=== PATIENT | female | born 1990 | race American Indian/Alaskan Native ===

== ENCOUNTER 2020-02-23 21:14 | Emergency (ER) | payer OTHER ==
[2020-02-23 21:18] VITALS: BP 143/97
[2020-02-23] MEDS ORDERED: ONDANSETRON 4 MG ODT TAB PO ONE (21:47)
[2020-02-23] MEDS ORDERED: BUTALB/ACETAMINOPHEN/CAFFEINE TAB PO ONE (21:47)
[2020-02-23] MEDS ORDERED: AMOXICILLIN/K CLAV 875/125MG TAB PO ONE (21:47)
[2020-02-23] MEDS ORDERED: KETOROLAC 30 MG/1 ML INJ IM ONE (21:47)
--- NOTE | 2020-02-23 22:02 | Emergency Department Report ---
ED General Adult HPI - General Chief complaint: Headache Stated complaint: HEADACHE Source: patient Mode of arrival: Ambulatory Limitations: No Limitations - History of Present Illness Initial comments: Patient is a 29-year-old -[place] female with no past medical history who presents to the ED with complaint of acute onset persistent severe frontal sinus headache and pressure for the last 3 weeks despite taking kozo-byv-nwilcuj medications for pain. Patient states that in the last 6 hours headache is worsened and has not responded to any medicine. Patient denies fever, chills, nausea, vomiting, dizziness, syncope, change in vision, neck pain, nasal and sinus congestion, abdominal pain, cough, sore throat, chest pain or shortness of breath or loss of consciousness. MD Complaint: frontal headache -: Sudden, week(s) (3) Location: head Radiation: non-radiation Severity scale (0 -10): 7 Quality: aching, sharp Consistency: constant Improves with: none Worsens with: none Associated Symptoms: denies other symptoms, headaches, loss of appetite. denies: confusion, chest pain, cough, diaphoresis, fever/chills, malaise, nausea/vomiting, rash, seizure, shortness of breath, syncope, weakness, other Treatments Prior to Arrival: none - Related Data Previous Rx's Medication Instructions Recorded Last Taken Type Amoxicillin/Potassium Clav 1 each PO Q12H #20 tablet 02/23/20 Unknown Rx [Augmentin 875-125 Tablet] Butalb/Acetamin/Caff 50-325-40 1 - 2 tab PO Q6HR PRN #15 tab 02/23/20 Unknown Rx [Fioricet 50-325-40] Ketorolac [Toradol] 10 mg PO Q8H PRN #20 tablet 02/23/20 Unknown Rx Ondansetron [Zofran Odt] 4 mg PO Q6HR PRN #15 tab.rapdis 02/23/20 Unknown Rx ED Review of Systems ROS: Stated complaint: HEADACHE Other details as noted in HPI Constitutional: denies: chills, fever Eyes: denies: eye pain, eye discharge, vision change ENT: denies: ear pain, throat pain Respiratory: denies: cough, shortness of breath, wheezing Cardiovascular: denies: chest pain, palpitations Endocrine: no symptoms reported Gastrointestinal: denies: abdominal pain, nausea, vomiting, diarrhea Genitourinary: denies: urgency, dysuria, discharge Musculoskeletal: denies: back pain, joint swelling, arthralgia Skin: denies: rash, lesions Neurological: headache. denies: weakness, paresthesias Psychiatric: denies: anxiety, depression Hematological/Lymphatic: denies: easy bleeding, easy bruising ED Past Medical Hx - Past Medical History Previous Medical History?: No - Surgical History Past Surgical History?: No - Social History Smoking Status: Never Smoker Substance Use Type: None - Medications Home Medications: Home Medications Medication Instructions Recorded Confirmed Last Taken Type Amoxicillin/Potassium Clav 1 each PO Q12H #20 tablet 02/23/20 Unknown Rx [Augmentin 875-125 Tablet] Butalb/Acetamin/Caff 50-325-40 1 - 2 tab PO Q6HR PRN #15 tab 02/23/20 Unknown Rx [Fioricet 50-325-40] Ketorolac [Toradol] 10 mg PO Q8H PRN #20 tablet 02/23/20 Unknown Rx Ondansetron [Zofran Odt] 4 mg PO Q6HR PRN #15 tab.rapdis 02/23/20 Unknown Rx ED Physical Exam - General Limitations: No Limitations General appearance: alert, in no apparent distress - Head Head exam: Present: atraumatic, normocephalic, normal inspection - Eye Eye exam: Present: normal appearance, PERRL, EOMI Pupils: Present: normal accommodation - ENT ENT exam: Present: normal exam, normal orophraynx, mucous membranes moist, TM's normal bilaterally, normal external ear exam - Neck Neck exam: Present: normal inspection, full ROM - Respiratory Respiratory exam: Present: normal lung sounds bilaterally. Absent: respiratory distress, wheezes, rales, stridor, chest wall tenderness, accessory muscle use, prolonged expiratory - Cardiovascular Cardiovascular Exam: Present: regular rate, normal rhythm, normal heart sounds. Absent: systolic murmur, diastolic murmur, rubs, gallop - GI/Abdominal GI/Abdominal exam: Present: soft, normal bowel sounds. Absent: distended, tenderness, guarding, hyperactive bowel sounds, hypoactive bowel sounds, organomegaly - Extremities Exam Extremities exam: Present: normal inspection, full ROM, normal capillary refill - Back Exam Back exam: Present: normal inspection, full ROM. Absent: tenderness, CVA tenderness (R), muscle spasm, paraspinal tenderness, vertebral tenderness - Neurological Exam Neurological exam: Present: alert, oriented X3, CN II-XII intact, normal gait, reflexes normal - Psychiatric Psychiatric exam: Present: normal affect, normal mood - Skin Skin exam: Present: warm, dry, intact, normal color. Absent: rash ED Course Vital Signs 02/23/20 21:16 Temperature 98.8 F Pulse Rate 95 H Respiratory 18 Rate Blood Pressure 143/97 O2 Sat by Pulse 100 Oximetry ED Medical Decision Making - Medical Decision Making This is a 29-year-old female with no past medical history who presented to the ED with acute onset persistent frontal sinus pressure and headache for the last 3 weeks despite taking ndex-hya-qeqeimb pain medications. In the ED, patient is alert and oriented x3 and is not in any distress. Patient was treated for pain in the ED and on reevaluation, patient's pain is well controlled with medications. Based on the history and physical exam findings, patient has not had any neurological symptoms. Therefore patient symptoms likely due to acute frontal sinusitis. Patient will discharge home on antibiotics and pain medication and was advised to follow-up with her primary care physician in 7 to 10 days for reevaluation or return to the ED immediately if symptoms get worse. - Differential Diagnosis sinus headache; sinusitis; tension headache; cluster headache Critical care attestation.: If time is entered above; I have spent that time in minutes in the direct care of this critically ill patient, excluding procedure time. ED Disposition Clinical Impression: Sinus headache, Acute non-recurrent frontal sinusitis Disposition: -01 TO HOME OR SELFCARE Is pt being admited?: No Does the pt Need Aspirin: No Condition: Stable Instructions: Acute Bacterial Rhinosinusitis (ED), Acute Headache (ED) Additional Instructions: Take medication with food, drink plenty of fluids and follow-up with your primary care physician in 7 to 10 days for reevaluation. Return to the ED immediately if symptoms get worse. Prescriptions: Amoxicillin/Potassium Clav [Augmentin 875-125 Tablet] 1 each PO Q12H #20 tablet Butalb/Acetamin/Caff 50-325-40 [Fioricet 50-325-40] 1 - 2 tab PO Q6HR PRN #15 tab PRN Reason: Headache Ketorolac [Toradol] 10 mg PO Q8H PRN #20 tablet PRN Reason: Pain Ondansetron [Zofran Odt] 4 mg PO Q6HR PRN #15 tab.rapdis PRN Reason: Nausea Referrals: DARRYL EID MD [Primary Care Provider] - 3-5 Days Time of Disposition: 21:59 Print Language: POLISH
== END 2020-02-23 22:25 | disposition home or self-care (01) ==
LOC: ED 21:14
DX: J01.10 Acute frontal sinusitis, unspecified (principal); Z79.2 Long term (current) use of antibiotics; Z79.899 Other long term (current) drug therapy
CPT/HCPCS: 96372; 99283; J1885; Q0162

== ENCOUNTER 2020-06-24 11:28 | Emergency (ER) | payer OTHER ==
[2020-06-24 11:36] VITALS: BP 145/94
--- NOTE | 2020-06-24 12:46 | Event Note ---
ED Screening Note ED Screening Note: This initial assessment/diagnostic orders/clinical plan/treatment(s) is/are subject to change based on patients health status, clinical progression and re- assessment by fellow clinical providers in the ED. Further treatment and workup at subsequent clinical providers discretion. Patient/guardian urged not to elope from the ED as their condition may be serious if not clinically assessed and managed. Initial orders include: pt in nad
[2020-06-24 12:57] LABS: Basophils # (Auto) 0.1 K/mm3 (0.0-0.1); Eosinophils # (Auto) 0.1 K/mm3 (0.0-0.4); Eosinophils % (Auto) 1.5 % (0.0-4.3); Hematocrit 30.1 % (30.3-42.9); Hemoglobin 9.1 gm/dl (10.1-14.3); Lymphocytes # (Auto) 1.9 K/mm3 (1.2-5.4); Lymphocytes % (Auto) 24.8 % (13.4-35.0); Mean Corpuscular HGB Conc 30 % (30-34); Monocytes # (Auto) 0.6 K/mm3 (0.0-0.8); Monocytes % (Auto) 7.6 % (0.0-7.3); Platelet Count 315 K/mm3 (140-440); Red Blood Count 4.69 M/mm3 (3.65-5.03); Red Cell Distribution Width 19.6 % (13.2-15.2)
[2020-06-24 13:25] LABS: Mean Corpuscular Volume 64 fl (79-97)
[2020-06-24 13:39] LABS: Alanine Aminotransferase 15 units/L (7-56); Albumin 4.1 g/dL (3.9-5); BUN/Creatinine Ratio 6; Blood Urea Nitrogen 5 mg/dL (7-17); Calcium 9.6 mg/dL (8.4-10.2); Hemolysis Index 2
[2020-06-24 15:26] LABS: Bilirubin,Urine NEG (Negative); Blood,Urine NEG (Negative); Color,Urine Yellow (Yellow); Mucus,Urine 3+ /HPF; Protein,Urine <15 mg/dL mg/dL (Negative)
--- NOTE | 2020-06-24 15:59 | Emergency Department Report ---
ED Abdominal Pain HPI - General Chief Complaint: Abdominal Pain Stated Complaint: ABD PAIN PUI?: No Time Seen by Provider: 06/24/20 12:24 Source: patient Mode of arrival: Ambulatory Limitations: No Limitations - History of Present Illness Initial Comments: This is a 30-year-old female presents the ED complaining of left-sided flank pain for the past couple of days. Patient states that pain is localized to the left flank area. Patient denies urinary frequency, dysuria, nausea vomiting or diarrhea. She denies fever/chills/chest pain shortness of breath or any other symptoms. MD Complaint: abdominal pain, flank pain - Related Data Previous Rx's Medication Instructions Recorded Last Taken Type Amoxicillin/Potassium Clav 1 each PO Q12H #20 tablet 02/23/20 Unknown Rx [Augmentin 875-125 Tablet] Ketorolac [Toradol] 10 mg PO Q8H PRN #20 tablet 02/23/20 Unknown Rx Ondansetron [Zofran Odt] 4 mg PO Q6HR PRN #15 tab.rapdis 02/23/20 Unknown Rx Butalb/Acetamin/Caff 50-325-40 1 tab PO Q6HR PRN #15 tab 02/24/20 Unknown Rx [Fioricet 50-325-40] Ibuprofen [Motrin] 800 mg PO Q8HR #30 tablet 06/24/20 Unknown Rx Allergies Allergy/AdvReac Type Severity Reaction Status Date / Time No Known Allergies Allergy Unverified 02/23/20 22:05 ED Review of Systems ROS: Stated complaint: ABD PAIN Other details as noted in HPI Comment: All other systems reviewed and negative ED Past Medical Hx - Social History Smoking Status: Never Smoker Substance Use Type: None - Medications Home Medications: Home Medications Medication Instructions Recorded Confirmed Last Taken Type Amoxicillin/Potassium Clav 1 each PO Q12H #20 tablet 02/23/20 Unknown Rx [Augmentin 875-125 Tablet] Ketorolac [Toradol] 10 mg PO Q8H PRN #20 tablet 02/23/20 Unknown Rx Ondansetron [Zofran Odt] 4 mg PO Q6HR PRN #15 tab.rapdis 02/23/20 Unknown Rx Butalb/Acetamin/Caff 50-325-40 1 tab PO Q6HR PRN #15 tab 02/24/20 Unknown Rx [Fioricet 50-325-40] Ibuprofen [Motrin] 800 mg PO Q8HR #30 tablet 06/24/20 Unknown Rx ED Physical Exam - General Limitations: No Limitations General appearance: alert, in no apparent distress - Head Head exam: Present: atraumatic, normocephalic - Eye Eye exam: Present: normal appearance - ENT ENT exam: Present: mucous membranes moist - Neck Neck exam: Present: normal inspection - Respiratory Respiratory exam: Present: normal lung sounds bilaterally. Absent: respiratory distress - Cardiovascular Cardiovascular Exam: Present: regular rate, normal rhythm. Absent: systolic murmur, diastolic murmur, rubs, gallop - GI/Abdominal GI/Abdominal exam: Present: soft, normal bowel sounds. Absent: distended, tenderness, guarding, rebound, mass - Extremities Exam Extremities exam: Present: normal inspection - Back Exam Back exam: Present: normal inspection, full ROM. Absent: CVA tenderness (R), CVA tenderness (L) - Neurological Exam Neurological exam: Present: alert, oriented X3 - Psychiatric Psychiatric exam: Present: normal affect, normal mood - Skin Skin exam: Present: warm, dry, intact, normal color. Absent: rash ED Course Vital Signs 06/24/20 11:35 Temperature 98.2 F Pulse Rate 86 Respiratory 20 Rate Blood Pressure 145/94 O2 Sat by Pulse 98 Oximetry ED Medical Decision Making - Lab Data Result diagrams: 06/24/20 12:42 06/24/20 12:42 Laboratory Last Values WBC 7.5 K/mm3 (4.5-11.0) 06/24/20 12:42 RBC 4.69 M/mm3 (3.65-5.03) 06/24/20 12:42 Hgb 9.1 gm/dl (10.1-14.3) L 06/24/20 12:42 Hct 30.1 % (30.3-42.9) L 06/24/20 12:42 MCV 64 fl (79-97) L 06/24/20 12:42 MCH 19 pg (28-32) L 06/24/20 12:42 MCHC 30 % (30-34) 06/24/20 12:42 RDW 19.6 % (13.2-15.2) H 06/24/20 12:42 Plt Count 315 K/mm3 (140-440) 06/24/20 12:42 Lymph % (Auto) 24.8 % (13.4-35.0) 06/24/20 12:42 Brooke % (Auto) 7.6 % (0.0-7.3) H 06/24/20 12:42 Eos % (Auto) 1.5 % (0.0-4.3) 06/24/20 12:42 Baso % (Auto) 1.0 % (0.0-1.8) 06/24/20 12:42 Lymph # 1.9 K/mm3 (1.2-5.4) 06/24/20 12:42 Brooke # 0.6 K/mm3 (0.0-0.8) 06/24/20 12:42 Eos # 0.1 K/mm3 (0.0-0.4) 06/24/20 12:42 Baso # 0.1 K/mm3 (0.0-0.1) 06/24/20 12:42 Seg Neutrophils % 65.1 % (40.0-70.0) 06/24/20 12:42 Seg Neutrophils # 4.9 K/mm3 (1.8-7.7) 06/24/20 12:42 Sodium 141 mmol/L (137-145) 06/24/20 12:42 Potassium 4.3 mmol/L (3.6-5.0) 06/24/20 12:42 Chloride 103.7 mmol/L (98-107) 06/24/20 12:42 Carbon Dioxide 22 mmol/L (22-30) 06/24/20 12:42 Anion Gap 20 mmol/L 06/24/20 12:42 BUN 5 mg/dL (7-17) L 06/24/20 12:42 Creatinine 0.9 mg/dL (0.6-1.2) 06/24/20 12:42 Estimated GFR > 60 ml/min 06/24/20 12:42 BUN/Creatinine Ratio 6 % 06/24/20 12:42 Glucose 90 mg/dL (65-100) 06/24/20 12:42 Calcium 9.6 mg/dL (8.4-10.2) 06/24/20 12:42 Total Bilirubin 0.30 mg/dL (0.1-1.2) 06/24/20 12:42 AST 15 units/L (5-40) 06/24/20 12:42 ALT 15 units/L (7-56) 06/24/20 12:42 Alkaline Phosphatase 70 units/L (35-129) 06/24/20 12:42 Total Protein 7.4 g/dL (6.3-8.2) 06/24/20 12:42 Albumin 4.1 g/dL (3.9-5) 06/24/20 12:42 Albumin/Globulin Ratio 1.2 % 06/24/20 12:42 Lipase 13 units/L (13-60) 06/24/20 12:42 Urine Color Yellow (Yellow) 06/24/20 15:11 Urine Turbidity Clear (Clear) 06/24/20 15:11 Urine pH 5.0 (5.0-7.0) 06/24/20 15:[address] [employer] 1.018 (1.003-1.030) 06/24/20 15:11 Urine Protein <15 mg/dl mg/dL (Negative) 06/24/20 15:11 Urine Glucose (UA) Neg mg/dL (Negative) 06/24/20 15:11 Urine Ketones Neg mg/dL (Negative) 06/24/20 15:11 Urine Blood Neg (Negative) 06/24/20 15:11 Urine Nitrite Neg (Negative) 06/24/20 15:11 Urine Bilirubin Neg (Negative) 06/24/20 15:11 Urine Urobilinogen 2.0 mg/dL (<2.0) 06/24/20 15:11 Ur Leukocyte Esterase Neg (Negative) 06/24/20 15:11 Urine WBC (Auto) 3.0 /HPF (0.0-6.0) 06/24/20 15:11 Urine RBC (Auto) 3.0 /HPF (0.0-6.0) 06/24/20 15:11 U Epithel Cells (Auto) 3.0 /HPF (0-13.0) 06/24/20 15:11 Urine Mucus 3+ /HPF 06/24/20 15:11 - Medical Decision Making This 30-year-old female presented with flank pain All labs were within normal limits, urinalysis negative. I discussed findings with the patient. I discussed with patient that this could be muscular in nature due to negative findings. And no urinary symptoms I discussed patient follow-up with primary care physician in 3 days. Vital signs are normal patient is in no acute or respiratory distress patient understand instructions and will follow-up - Differential Diagnosis Acute Pyelo, UTI, muscular strain Critical care attestation.: If time is entered above; I have spent that time in minutes in the direct care of this critically ill patient, excluding procedure time. ED Disposition Clinical Impression: Flank pain Disposition: DC-01 TO HOME OR SELFCARE Is pt being admited?: No Does the pt Need Aspirin: No Condition: Stable Instructions: Abdominal Pain (ED), Flank Pain (ED) Additional Instructions: Make sure to follow up with the primary care physician as discussed. Take all your medications as you've been prescribed. If you have any worsening symptoms or develop new symptoms please return to ED immediately. Prescriptions: Ibuprofen [Motrin] 800 mg PO Q8HR #30 tablet Referrals: PRIMARY CARE, [Primary Care Provider] - 3-5 Days [facility] [Outside] - 3-5 Days [facility] [Outside] - 3-5 Days Forms: Work/School Release Form(ED) Time of Disposition: 16:06
== END 2020-06-24 16:15 | disposition home or self-care (01) ==
LOC: ED 11:28
DX: R10.9 Unspecified abdominal pain (principal); Z79.1 Long term (current) use of non-steroidal anti-inflammatories (NSAID); Z79.2 Long term (current) use of antibiotics; Z79.899 Other long term (current) drug therapy
CPT/HCPCS: 36415; 80053; 81001; 83690; 85025; 99283

== ENCOUNTER 2020-12-13 10:30 | Emergency (ER) | payer OTHER ==
[2020-12-13] MEDS ORDERED: IBUPROFEN 600 MG TAB PO ONE (10:42)
[2020-12-13 10:43] VITALS: BP 151/96
--- NOTE | 2020-12-13 10:49 | Emergency Department Report ---
- General Chief Complaint: Upper Respiratory Infection Stated Complaint: CHEST PAIN/DIFFCULT BREATHING Time Seen by Provider: 12/13/20 10:41 Source: patient Mode of arrival: Ambulatory Limitations: No Limitations - History of Present Illness Initial Comments: 30-year-old -Citizen Of [place] female presents to the emergency room complaining of cough sore throat body aches and fever x1 week. Patient states that her chest hurts when she coughs and takes a deep breath. Patient denies any loss of taste or smell or diarrhea. Patient has not taken any lxyj-qnn-bvfjzdg medications. MD Complaint: fever, cough, sore throat Onset/Timin -: week(s) Severity scale (0 -10): 9 Quality: sharp Consistency: intermittent Improves With: nothing Worsens With: deep breaths Associated Symptoms: fever, chills, headache, sore throat, cough, shortness of breath, other. denies: nausea, vomiting Treatments Prior to Arrival: none (Body aches) - Related Data Previous Rx's Medication Instructions Recorded Last Taken Type Amoxicillin/Potassium Clav 1 each PO Q12H #20 tablet 02/23/20 Unknown Rx [Augmentin 875-125 Tablet] Ketorolac [Toradol] 10 mg PO Q8H PRN #20 tablet 02/23/20 Unknown Rx Ondansetron [Zofran Odt] 4 mg PO Q6HR PRN #15 tab.rapdis 02/23/20 Unknown Rx Butalb/Acetamin/Caff 50-325-40 1 tab PO Q6HR PRN #15 tab 02/24/20 Unknown Rx [Fioricet 50-325-40] Ibuprofen [Motrin] 800 mg PO Q8HR #30 tablet 06/24/20 Unknown Rx Azithromycin [Zithromax Z-NADER] 250 mg PO DAILY #6 tab 12/13/20 Unknown Rx Ibuprofen [Motrin 800 MG tab] 800 mg PO Q8HR PRN #30 tablet 12/13/20 Unknown Rx Allergies Allergy/AdvReac Type Severity Reaction Status Date / Time No Known Allergies Allergy Unverified 02/23/20 22:05 ED Review of Systems ROS: Stated complaint: CHEST PAIN/DIFFCULT BREATHING Other details as noted in HPI Comment: All other systems reviewed and negative ED Past Medical Hx - Past Medical History Previous Medical History?: No - Surgical History Past Surgical History?: Yes Additional Surgical History: x 3 - Social History Smoking Status: Never Smoker Substance Use Type: None - Medications Home Medications: Home Medications Medication Instructions Recorded Confirmed Last Taken Type Amoxicillin/Potassium Clav 1 each PO Q12H #20 tablet 02/23/20 Unknown Rx [Augmentin 875-125 Tablet] Ketorolac [Toradol] 10 mg PO Q8H PRN #20 tablet 02/23/20 Unknown Rx Ondansetron [Zofran Odt] 4 mg PO Q6HR PRN #15 tab.rapdis 02/23/20 Unknown Rx Butalb/Acetamin/Caff 50-325-40 1 tab PO Q6HR PRN #15 tab 02/24/20 Unknown Rx [Fioricet 50-325-40] Ibuprofen [Motrin] 800 mg PO Q8HR #30 tablet 06/24/20 Unknown Rx Azithromycin [Zithromax Z-NADER] 250 mg PO DAILY #6 tab 12/13/20 Unknown Rx Ibuprofen [Motrin 800 MG tab] 800 mg PO Q8HR PRN #30 tablet 12/13/20 Unknown Rx ED Physical Exam - General Limitations: No Limitations General appearance: alert, in no apparent distress - Head Head exam: Present: atraumatic, normocephalic - Eye Eye exam: Present: normal appearance - ENT ENT exam: Present: mucous membranes dry - Neck Neck exam: Present: lymphadenopathy - Cardiovascular Cardiovascular Exam: Present: tachycardia - GI/Abdominal GI/Abdominal exam: Present: soft. Absent: distended, tenderness ED Course Vital Signs 12/13/20 10:40 Temperature 100.3 F H Pulse Rate 107 H Respiratory 18 Rate Blood Pressure 151/96 O2 Sat by Pulse 98 Oximetry ED Medical Decision Making - Lab Data Result diagrams: 12/13/20 11:06 12/13/20 11:06 - Radiology Data Radiology results: report reviewed Patient: JAYMIE BOLANOS MR#: [id number] : 1990 Acct:[id number] Age/Sex: 30 / F ADM Date: 12/13/20 Loc: ED Attending Dr: Ordering Physician: JUAN PANCHAL Date of Service: 12/13/20 Procedure(s): XR chest routine 2V Accession Number(s): [id number] cc: JUAN PANCHAL Fluoro Time In Minutes: XR chest routine 2V INDICATION / CLINICAL INFORMATION: Cough, shortness of breath and fever. COMPARISON: None available. FINDINGS: SUPPORT DEVICES: None. HEART /PULMONARY VASCULATURE: No significant abnormality. LUNGS / PLEURA: Mild patchy airspace opacity in the right lower lobe. Left lung is clear. No sizable pleural effusion. No pneumothorax. ADDITIONAL FINDINGS: No significant additional findings. IMPRESSION: Mild patchy airspace opacity in the right lower lobe, may reflect atelectasis or pneumonia. Signer Name: Shelia Murray MD Signed: 12/13/2020 12:36 PM Workstation Name: [id number] Transcribed By: JS Dictated By: SHELIA MURRAY MD Electronically Authenticated By: SHELIA MURRAY MD Signed Date/Time: 12/13/20 1236 DD/ 1235 TD/TT: - Medical Decision Making 30-year-old -Citizen Of [place] female presents to the emergency room complaining of cough sore throat body aches and fever x1 week. Patient states that her chest hurts when she coughs and takes a deep breath. Patient denies any loss of taste or smell or diarrhea. Patient has not taken any zriu-nnm-btkhrjh medications. Patient chest x-ray shows mild patchy opacity in the right lower lung. We will treat patient for community-acquired pneumonia and referral to get Covid testing. Patient is encouraged to increase her fluid intake take Tylenol or ibuprofen for body aches and sore throat. Strep test and flu test were negative. Critical care attestation.: If time is entered above; I have spent that time in minutes in the direct care of this critically ill patient, excluding procedure time. ED Disposition Clinical Impression: Community acquired pneumonia Disposition: DC-01 TO HOME OR SELFCARE Is pt being admited?: No Does the pt Need Aspirin: No Condition: Stable Instructions: Bacterial Pneumonia (ED), Community-Acquired Pneumonia, Adult, Nesv-gq-Bbwy Additional Instructions: X-ray shows that you have pneumonia in your right lower lobe. Labs are stable recommend ibuprofen or Tylenol for fever and body aches. Complete your azithromycin which is an antibiotic use for acute treating community-acquired pneumonia. I do encourage you to get a Covid test. Handout was provided to you in your discharge summary. Be sure to increase your fluid intake advance your diet as tolerated. Prescriptions: Ibuprofen [Motrin 800 MG tab] 800 mg PO Q8HR PRN #30 tablet PRN Reason: Pain , Severe (7-10) Azithromycin [Zithromax Z-NADER] 250 mg PO DAILY #6 tab Referrals: ANGIE VIEYRA MD [Primary Care Provider] - 3-5 Days Forms: Work/School Release Form(ED)
[2020-12-13 11:32] LABS: Hematocrit 34.8 % (30.3-42.9); Hemoglobin 11.4 gm/dl (10.1-14.3); Mean Corpuscular HGB Conc 33 % (30-34); Mean Corpuscular Volume 81 fl (79-97); Platelet Count 256 K/mm3 (140-440); Red Blood Count 4.29 M/mm3 (3.65-5.03); Red Cell Distribution Width 15.3 % (13.2-15.2)
[2020-12-13 11:50] LABS: HCG Qualitative,Urine Negative (Negative)
[2020-12-13 11:57] LABS: Alanine Aminotransferase 17 units/L (7-56); Albumin 3.9 g/dL (3.9-5); BUN/Creatinine Ratio 10; Blood Urea Nitrogen 10 mg/dL (7-17); Calcium 8.5 mg/dL (8.4-10.2); Hemolysis Index 26
[2020-12-13 12:14] LABS: Total Cells Counted 100
[2020-12-13 12:15] LABS: Anisocytosis 1+; Large Platelets Few; Platelet Estimate Consistent w Auto
--- NOTE | 2020-12-13 12:41 | XRay Report ---
XR chest routine 2V INDICATION / CLINICAL INFORMATION: Cough, shortness of breath and fever. COMPARISON: None available. FINDINGS: SUPPORT DEVICES: None. HEART /PULMONARY VASCULATURE: No significant abnormality. LUNGS / PLEURA: Mild patchy airspace opacity in the right lower lobe. Left lung is clear. No sizable pleural effusion. No pneumothorax. ADDITIONAL FINDINGS: No significant additional findings. IMPRESSION: Mild patchy airspace opacity in the right lower lobe, may reflect atelectasis or pneumonia. Signer Name: Woodrow Murray MD Signed: 12/13/2020 12:36 PM Workstation Name: [id number]
== END 2020-12-13 13:58 | disposition home or self-care (01) ==
LOC: ED 10:30
DX: J18.9 Pneumonia, unspecified organism (principal); Z98.890 Other specified postprocedural states; Z79.1 Long term (current) use of non-steroidal anti-inflammatories (NSAID); Z79.2 Long term (current) use of antibiotics; Z79.899 Other long term (current) drug therapy
CPT/HCPCS: 36415; 71046; 80053; 81025; 85007; 85025; 87116; 87400; 87430

== ENCOUNTER 2021-02-01 10:18 | Emergency (ER) | payer OTHER ==
[2021-02-01 11:04] VITALS: BP 151/93
[2021-02-01] MEDS ORDERED: IBUPROFEN 800 MG TAB PO ONE (11:53)
--- NOTE | 2021-02-01 12:01 | Emergency Department Report ---
ED General Adult HPI - General Chief complaint: Fall Stated complaint: WRIST INJURY Time Seen by Provider: 02/01/21 11:52 Source: patient Mode of arrival: Ambulatory Limitations: No Limitations - History of Present Illness Initial comments: 30-year-old -[place] female patient presents with complaints of right wrist pain after a fall injury today. Patient states she fell on outstretched. Patient rates her current pain as a 9/10 in severity. She denies any numbness or tingling, however states it is difficult to move the wrist secondary to pain. No swelling per patient. - Related Data Previous Rx's Medication Instructions Recorded Last Taken Type Amoxicillin/Potassium Clav 1 each PO Q12H #20 tablet 02/23/20 Unknown Rx [Augmentin 875-125 Tablet] Ketorolac [Toradol] 10 mg PO Q8H PRN #20 tablet 02/23/20 Unknown Rx Ondansetron [Zofran Odt] 4 mg PO Q6HR PRN #15 tab.rapdis 02/23/20 Unknown Rx Butalb/Acetamin/Caff 50-325-40 1 tab PO Q6HR PRN #15 tab 02/24/20 Unknown Rx [Fioricet 50-325-40] Ibuprofen [Motrin] 800 mg PO Q8HR #30 tablet 06/24/20 Unknown Rx Azithromycin [Zithromax Z-NADER] 250 mg PO DAILY #6 tab 12/13/20 Unknown Rx Ibuprofen [Motrin 800 MG tab] 800 mg PO Q8HR PRN #30 tablet 12/13/20 Unknown Rx Naproxen 500 mg PO BID PRN #14 tablet 02/01/21 Unknown Rx Allergies Allergy/AdvReac Type Severity Reaction Status Date / Time No Known Allergies Allergy Unverified 02/23/20 22:05 ED Review of Systems ROS: Stated complaint: WRIST INJURY Other details as noted in HPI Constitutional: denies: malaise Musculoskeletal: arthralgia. denies: joint swelling Skin: denies: change in color Neurological: denies: numbness, paresthesias ED Past Medical Hx - Past Medical History Previous Medical History?: No - Surgical History Past Surgical History?: Yes Additional Surgical History: x 3 - Social History Smoking Status: Never Smoker Substance Use Type: None - Medications Home Medications: Home Medications Medication Instructions Recorded Confirmed Last Taken Type Amoxicillin/Potassium Clav 1 each PO Q12H #20 tablet 02/23/20 Unknown Rx [Augmentin 875-125 Tablet] Ketorolac [Toradol] 10 mg PO Q8H PRN #20 tablet 02/23/20 Unknown Rx Ondansetron [Zofran Odt] 4 mg PO Q6HR PRN #15 tab.rapdis 02/23/20 Unknown Rx Butalb/Acetamin/Caff 50-325-40 1 tab PO Q6HR PRN #15 tab 02/24/20 Unknown Rx [Fioricet 50-325-40] Ibuprofen [Motrin] 800 mg PO Q8HR #30 tablet 06/24/20 Unknown Rx Azithromycin [Zithromax Z-NADER] 250 mg PO DAILY #6 tab 12/13/20 Unknown Rx Ibuprofen [Motrin 800 MG tab] 800 mg PO Q8HR PRN #30 tablet 12/13/20 Unknown Rx Naproxen 500 mg PO BID PRN #14 tablet 02/01/21 Unknown Rx ED Physical Exam - General Limitations: No Limitations General appearance: alert, in no apparent distress, obese - Head Head exam: Present: atraumatic, normocephalic - Respiratory Respiratory exam: Absent: respiratory distress - Cardiovascular Cardiovascular Exam: Present: regular rate - Expanded Upper Extremity Exam Left Hand Wrist exam: Present: tenderness. Absent: full ROM (Limited secondary to her pain), swelling, abrasion, laceration, ecchymosis, deformity, erythema Vascular: Present: normal capillary refill - Neurological Exam Neurological exam: Present: alert, oriented X3 - Psychiatric Psychiatric exam: Present: normal affect, normal mood - Skin Skin exam: Present: warm, dry, intact, normal color. Absent: rash ED Course Vital Signs 02/01/21 02/01/21 11:03 12:00 Temperature 98.2 F Pulse Rate 68 Respiratory 18 20 Rate Blood Pressure 151/93 O2 Sat by Pulse 100 Oximetry ED Medical Decision Making - Medical Decision Making 30-year-old -[place] female patient presents with complaints of right wrist pain after a fall injury today. Patient states she fell on outstretched. Patient rates her current pain as a 9/10 in severity. She denies any numbness or tingling, however states it is difficult to move the wrist secondary to pain. No swelling per patient. X-rays negative for any acute bony abnormalities. Will treat for wrist sprain with wrist splint and rice method. Recommend follow-up with primary care doctor in 3 to 5 days. Strict return precautions were discussed in detail with patient who verbalizes understanding. Critical care attestation.: If time is entered above; I have spent that time in minutes in the direct care of this critically ill patient, excluding procedure time. ED Disposition Clinical Impression: Left wrist sprain Qualifiers: Encounter type: initial encounter Qualified Code(s): S63.502A - Unspecified sprain of left wrist, initial encounter Disposition: TO HOME OR SELFCARE Is pt being admited?: No Condition: Stable Instructions: Wrist Sprain, Adult Prescriptions: Naproxen 500 mg PO BID PRN #14 tablet PRN Reason: pain Referrals: [facility] [Provider Group] - 3-5 Days
--- NOTE | 2021-02-01 12:25 | XRay Report ---
LEFT HAND 3 VIEW(S) INDICATION / CLINICAL INFORMATION: Pain COMPARISON: None available. FINDINGS: BONES / JOINT(S): No acute fracture or subluxation. No significant arthritis. SOFT TISSUES: No significant abnormality. ADDITIONAL FINDINGS: None. IMPRESSION: No acute osseous findings of the left hand. Signer Name: Woodrow Murray MD Signed: 02/01/2021 12:21 PM Workstation Name: [id number]
== END 2021-02-01 13:19 | disposition home or self-care (01) ==
LOC: ED 10:18
DX: S63.502A Unspecified sprain of left wrist, initial encounter (principal); Z98.890 Other specified postprocedural states; Z79.1 Long term (current) use of non-steroidal anti-inflammatories (NSAID); Z79.2 Long term (current) use of antibiotics; Z79.899 Other long term (current) drug therapy; W19.XXXA Unspecified fall, initial encounter; Y93.89 Activity, other specified; Y92.89 Other specified places as the place of occurrence of the external cause; Y99.8 Other external cause status

== ENCOUNTER 2021-05-27 10:44 | Emergency (ER) | payer OTHER ==
[2021-05-27 11:43] VITALS: BP 143/91
--- NOTE | 2021-05-27 12:31 | Emergency Department Report ---
ED ENT HPI - General Chief complaint: Sore Throat Stated complaint: SORE THROAT Time Seen by Provider: 05/27/21 11:33 Source: patient Mode of arrival: Ambulatory Limitations: No Limitations - History of Present Illness Initial comments: This is a 31-year-old female nontoxic, well nourished in appearance, no acute signs of distress presents to the ED with c/o of sore throat. Patient describes sore throat as swallowing razer blades. Patient denies any fever, chills, headache, stiff neck, nausea, vomiting, chest pain, shortness of breath, numbness or tingling. Patient denies any drooling or hoarseness. Patient denies any allergies or significant past medical history. MD complaint: sore throat -: days(s) Location: throat Severity: mild Severity scale (0 -10): 8 Quality: aching Consistency: constant Improves with: none Worsens with: swallowing Associated Symptoms: pain with swallowing, sore throat. denies: fever, cough, gum swelling, toothache, tinnitus, hearing loss, discharge from ear, rhinorrhea - Related Data Previous Rx's Medication Instructions Recorded Last Taken Type Amoxicillin/Potassium Clav 1 each PO Q12H #20 tablet 02/23/20 Unknown Rx [Augmentin 875-125 Tablet] Ketorolac [Toradol] 10 mg PO Q8H PRN #20 tablet 02/23/20 Unknown Rx Ondansetron [Zofran Odt] 4 mg PO Q6HR PRN #15 tab.rapdis 02/23/20 Unknown Rx Butalb/Acetamin/Caff 50-325-40 1 tab PO Q6HR PRN #15 tab 02/24/20 Unknown Rx [Fioricet 50-325-40] Ibuprofen [Motrin] 800 mg PO Q8HR #30 tablet 06/24/20 Unknown Rx Azithromycin [Zithromax Z-NADER] 250 mg PO DAILY #6 tab 12/13/20 Unknown Rx Ibuprofen [Motrin 800 MG tab] 800 mg PO Q8HR PRN #30 tablet 12/13/20 Unknown Rx Naproxen 500 mg PO BID PRN #14 tablet 02/01/21 Unknown Rx Amoxicillin [Amoxicillin TAB] 875 mg PO BID #20 tablet 05/27/21 Unknown Rx Naproxen 500 mg PO Q12H PRN #12 tablet 05/27/21 Unknown Rx Nystas/Diphen/Xyl Visc/Mylanta 15 ml MM Q6H PRN 5 Days #1 bottle 05/27/21 Unknown Rx [Magic Mouthwash] Allergies Allergy/AdvReac Type Severity Reaction Status Date / Time No Known Allergies Allergy Unverified 02/23/20 22:05 ED Dental HPI - General Chief complaint: Sore Throat Stated complaint: SORE THROAT Time Seen by Provider: 05/27/21 11:33 Source: patient Mode of arrival: Ambulatory Limitations: No Limitations - Related Data Previous Rx's Medication Instructions Recorded Last Taken Type Amoxicillin/Potassium Clav 1 each PO Q12H #20 tablet 02/23/20 Unknown Rx [Augmentin 875-125 Tablet] Ketorolac [Toradol] 10 mg PO Q8H PRN #20 tablet 02/23/20 Unknown Rx Ondansetron [Zofran Odt] 4 mg PO Q6HR PRN #15 tab.rapdis 02/23/20 Unknown Rx Butalb/Acetamin/Caff 50-325-40 1 tab PO Q6HR PRN #15 tab 02/24/20 Unknown Rx [Fioricet 50-325-40] Ibuprofen [Motrin] 800 mg PO Q8HR #30 tablet 06/24/20 Unknown Rx Azithromycin [Zithromax Z-NADER] 250 mg PO DAILY #6 tab 12/13/20 Unknown Rx Ibuprofen [Motrin 800 MG tab] 800 mg PO Q8HR PRN #30 tablet 12/13/20 Unknown Rx Naproxen 500 mg PO BID PRN #14 tablet 02/01/21 Unknown Rx Amoxicillin [Amoxicillin TAB] 875 mg PO BID #20 tablet 05/27/21 Unknown Rx Naproxen 500 mg PO Q12H PRN #12 tablet 05/27/21 Unknown Rx Nystas/Diphen/Xyl Visc/Mylanta 15 ml MM Q6H PRN 5 Days #1 bottle 05/27/21 Unknown Rx [Magic Mouthwash] Allergies Allergy/AdvReac Type Severity Reaction Status Date / Time No Known Allergies Allergy Unverified 02/23/20 22:05 ED Review of Systems ROS: Stated complaint: SORE THROAT Other details as noted in HPI Comment: All other systems reviewed and negative Constitutional: denies: chills, fever Eyes: denies: eye pain, eye discharge, vision change ENT: throat pain. denies: ear pain Respiratory: denies: cough, shortness of breath, wheezing Cardiovascular: denies: chest pain, palpitations Endocrine: no symptoms reported Gastrointestinal: denies: abdominal pain, nausea, diarrhea Genitourinary: denies: urgency, dysuria, discharge Musculoskeletal: denies: back pain, joint swelling, arthralgia Skin: denies: rash, lesions Neurological: denies: headache, weakness, paresthesias Psychiatric: denies: anxiety, depression Hematological/Lymphatic: denies: easy bleeding, easy bruising ED Past Medical Hx - Past Medical History Previous Medical History?: No - Surgical History Additional Surgical History: x 3;, tonsilectomy - Social History Smoking Status: Never Smoker Substance Use Type: None - Medications Home Medications: Home Medications Medication Instructions Recorded Confirmed Last Taken Type Amoxicillin/Potassium Clav 1 each PO Q12H #20 tablet 02/23/20 Unknown Rx [Augmentin 875-125 Tablet] Ketorolac [Toradol] 10 mg PO Q8H PRN #20 tablet 02/23/20 Unknown Rx Ondansetron [Zofran Odt] 4 mg PO Q6HR PRN #15 tab.rapdis 02/23/20 Unknown Rx Butalb/Acetamin/Caff 50-325-40 1 tab PO Q6HR PRN #15 tab 02/24/20 Unknown Rx [Fioricet 50-325-40] Ibuprofen [Motrin] 800 mg PO Q8HR #30 tablet 06/24/20 Unknown Rx Azithromycin [Zithromax Z-NADER] 250 mg PO DAILY #6 tab 12/13/20 Unknown Rx Ibuprofen [Motrin 800 MG tab] 800 mg PO Q8HR PRN #30 tablet 12/13/20 Unknown Rx Naproxen 500 mg PO BID PRN #14 tablet 02/01/21 Unknown Rx Amoxicillin [Amoxicillin TAB] 875 mg PO BID #20 tablet 05/27/21 Unknown Rx Naproxen 500 mg PO Q12H PRN #12 tablet 05/27/21 Unknown Rx Nystas/Diphen/Xyl Visc/Mylanta 15 ml MM Q6H PRN 5 Days #1 bottle 05/27/21 Unknown Rx [Magic Mouthwash] ED Physical Exam - General Limitations: No Limitations General appearance: alert, in no apparent distress - Head Head exam: Present: atraumatic, normocephalic - Eye Eye exam: Present: normal appearance - Expanded ENT Exam Expanded Ear exam: Present: normal external inspection Mouth exam: Present: normal external inspection, tongue normal. Absent: drooling, trismus, muffled voice Teeth exam: Present: normal inspection Throat exam: Positive: tonsillar erythema, tonsillomegaly (2+ bilateral), tonsillar exudate (Bilateral), other (Uvula midline. No tonsillar abscess.). Negative: R peritonsillar mass, L peritonsillar mass - Neck Neck exam: Present: normal inspection, full ROM. Absent: lymphadenopathy - Respiratory Respiratory exam: Absent: respiratory distress - Cardiovascular Cardiovascular Exam: Present: regular rate - Extremities Exam Extremities exam: Present: full ROM - Back Exam Back exam: Present: full ROM - Neurological Exam Neurological exam: Present: alert, oriented X3, normal gait - Psychiatric Psychiatric exam: Present: normal affect, normal mood - Skin Skin exam: Present: warm, dry, intact, normal color. Absent: rash ED Course Vital Signs 05/27/21 11:42 Temperature 98.1 F Pulse Rate 80 Respiratory 18 Rate Blood Pressure 143/91 O2 Sat by Pulse 97 Oximetry - Reevaluation(s) Reevaluation #1: 05/27/21 12:29 Patient is speaking in full sentences with no signs of distress noted. ED Medical Decision Making - Medical Decision Making This is a 31-year-old female that presents with tonsillitis with exudate. Patient is stable was examined by me. There is no drooling. No tonsillar abscess noted. Uvula is midline. Patient discharged with amoxicillin. Vital signs are stable. Patient is not febrile and normal heart rate. Patient was instructed to Follow-up with a primary care doctor in 3-5 days or if symptoms worsen and continue return to emergency room as soon as possible. At time of discharge, the patient does not seem toxic or ill in appearance. No acute signs of distress noted. Patient agrees to discharge treatment plan of care. No further questions noted by the patient. Critical care attestation.: If time is entered above; I have spent that time in minutes in the direct care of this critically ill patient, excluding procedure time. ED Disposition Clinical Impression: Tonsillitis with exudate Disposition: TO HOME OR SELFCARE Is pt being admited?: No Does the pt Need Aspirin: No Condition: Stable Instructions: Tonsillitis, [id number] Additional Instructions: Follow-up with a primary care doctor in 3-5 days or if symptoms worsen and continue return to emergency room as soon as possible. Prescriptions: Amoxicillin [Amoxicillin TAB] 875 mg PO BID #20 tablet Nystas/Diphen/Xyl Visc/Mylanta [Magic Mouthwash] 15 ml MM Q6H PRN 5 Days #1 bottle PRN Reason: Sore Throat Naproxen 500 mg PO Q12H PRN #12 tablet PRN Reason: Pain , Severe (7-10) Referrals: PRIMARY CAREMD [Primary Care Provider] - 3-5 Days JERRY GARCIA MD [Staff Physician] - 3-5 Days Forms: Work/School Release Form(ED) Time of Disposition: 12:31
== END 2021-05-27 13:05 | disposition home or self-care (01) ==
LOC: ED 10:44
DX: J03.90 Acute tonsillitis, unspecified (principal); Z90.89 Acquired absence of other organs; Z98.890 Other specified postprocedural states; Z79.1 Long term (current) use of non-steroidal anti-inflammatories (NSAID); Z79.2 Long term (current) use of antibiotics; Z79.899 Other long term (current) drug therapy
CPT/HCPCS: 99281